=== PATIENT | male | born 1960 ===

== ENCOUNTER 2019-06-22 12:29 | Emergency (ER) | payer OTHER, MEDICARE | END 2019-06-22 12:35 | disposition DOA | LOC: ED 12:29 | DX: T75.1XXA Unspecified effects of drowning and nonfatal submersion, initial encounter (principal); S01.01XA Laceration without foreign body of scalp, initial encounter; I46.9 Cardiac arrest, cause unspecified; Y93.89 Activity, other specified; Y92.828 Other wilderness area as the place of occurrence of the external cause; Y99.8 Other external cause status ==